=== PATIENT | female | born 1945 | race Caucasian/White ===

== ENCOUNTER 2016-02-29 03:39 | Emergency (ER) | payer OTHER ==
[2016-02-29] MEDS ORDERED: IOPAMIDOL 370 (76%) 100 ML VIAL IV ONE (03:40)
[2016-02-29] MEDS ORDERED: ASPIRIN (ENTERIC COATED) 81 MG TABLET.EC ONE (04:22)
[2016-02-29] MEDS ORDERED: ASPIRIN CHEWTAB 81 MG TABLET ONE (04:25)
[2016-02-29 04:43] LABS: ABSOLUTE NEUTROPHIL COUNT 7.4 K/mm3 (1.8-7.7); BASO % 0.3 % (0.2-1.0); EOS # 0.1 (0.0-0.5); EOS % 1.1 % (0.9-2.9); HEMATOCRIT 39.6 % (37.0-47.0); HEMOGLOBIN 13.3 gm/l (12.0-16.0); IMM NEUT # 0.1 K/mm3 (0-0.2); IMM NEUT% 0.6 % (0-1); LYMPH # 1.6 (1.0-4.8); LYMPH % 15.7 % (15-45); MEAN CELL VOLUME 87.6 fl (81.0-99.0); MEAN CORPUSCULAR HEMOGLOBIN 29.4 pg (27.0-31.0); MEAN CORPUSCULAR HGB CONC 33.6 g/dl (33.0-37.0); MONO # 0.9 (0.0-0.8); MONO % 8.7 % (4-12); NEUT % 73.6 % (43-75); PLATELET COUNT 205 K/mm3 (130-400); RED CELL DISTRIBUTION WIDTH 13.4 % (11.5-14.5)
[2016-02-29 05:04] LABS: ALB/GLOB RATIO 1.2 (>1.0); ALBUMIN 3.6 gm/dL (3.5-5.7); CALCIUM 9.1 mg/dL (8.6-10.3)
[2016-02-29 05:08] LABS: TROPONIN I < 0.01 ng/ml (0.0-0.06)
[2016-02-29 05:11] LABS: CKMB ISOENZYME 0.8 ng/ml (0.6-6.3)
--- NOTE | 2016-02-29 07:33 | RAD ---
Exam: Two-view chest COMPARISON: None INDICATION: Chest pain. FINDINGS: PA and lateral views of the chest were obtained. Cardiac silhouette is within normal limits. Lungs are well-inflated. There is minor coarsening of the bronchovascular markings. There is no focal airspace disease or definite pleural effusion although blunting of one of the costophrenic angles is seen on the lateral view only. Bones of the chest wall within normal limits. IMPRESSION: Blunting of the posterior costophrenic angles, only seen on the lateral view, which could reflect a tiny pleural effusion. Otherwise negative two-view chest.
--- NOTE | 2016-02-29 07:40 | CT ---
Exam: CT angiogram chest with contrast Comparison: Chest radiograph 02/29/2016 History: Left-sided chest pain, rib pain, flank pain and shoulder pain. Elevated d-dimer. Technique: CT angiogram of the chest was obtained following the administration of 80 mL Isovue-370 intravenous contrast using a CT angiogram pulmonary embolism protocol which was supplemented with MIP reconstructions from the CT workstation as well as multiplanar 3-D reformations constructed at an independent workstation. Findings: There is evidence of acute pulmonary thromboembolic disease involving the left upper and lower lobe pulmonary arteries. These extend from the distal lobar segments through the segmental levels. This is associated with tiny left-sided pleural effusion. There is minor subpleural opacity laterally, without definite evidence of pulmonary infarct. Probable small subsegmental embolus is seen within the right lower lobe. The right lung is clear. The main pulmonary artery is not enlarged and there is no CT evidence of right heart strain. There is no pericardial effusion. Limited evaluation of the upper abdomen is without acute or concerning abnormality. Mild degenerative change are seen within the thoracic spine. IMPRESSION: Acute pulmonary thromboembolic disease as above, left greater than right. Tiny left-sided pleural effusion. Critical results were called to Dr. Lloyd from [facility] at 0607 hours 02/29/2016.
== END 2016-02-29 08:10 | disposition short-term general hospital (02) ==
LOC: ED 03:39
DX: I26.99 Other pulmonary embolism without acute cor pulmonale (principal); R07.9 Chest pain, unspecified; R06.02 Shortness of breath
CPT/HCPCS: 83690; 85379; 85025; 82553; 80053; 84484; 71020; 71275; 99285 ×2; 93005; A9270 ×2; Q9967